=== PATIENT | male | born 1995 | race Caucasian/White ===

== ENCOUNTER 2017-10-06 23:01 | Emergency (ER) | payer SELFPAY ==
[~2017-10-06] VITALS: Ht 165.1 cm; Wt 66.0 kg
[2017-10-06 23:08] VITALS: BP 134/62; PULSE 73; RESP 16; TEMP 98.2; O2SAT 98
[2017-10-06] MEDS ORDERED: PENI500T PO (23:29)
[2017-10-06] MEDS ORDERED: PENICILLIN V POTASSIUM 500 MG TAB PO ONE (23:30)
[2017-10-06] MEDS ORDERED: LIDOCAINE 1%/EPINEPHrine 1:100,000 SOLN 20 ML VIAL INFIL ONE (23:30)
--- NOTE | 2017-10-06 23:30 | PD ---
HPI Chief Complaint: Oral / Dental Pain or Problem Time Seen by Provider: 23:16 Travel History International Travel<30 days: No Contact w/Intl Traveler<30days: No Traveled to known affect area: No History of Present Illness HPI 22-year-old male here for evaluation of left lower dental pain. The patient has had intermittent pain for the last month, worsening pain over the last 2-3 days. He states that the pain was so bad tonight that he was unable to sleep. Pain is severe, constant. No fevers. He is able to swallow and tolerate his secretions. He believes the pain is from his left lower wisdom tooth. He has been unable to get in with a dentist. [facility] Past Medical History Medical History: Denies Significant Hx Tetanus Vaccination: < 5 Years Influenza Vaccination: No Past Surgical History Surgical History: No Previous Surgery Social History Alcohol Use: No Tobacco Use: Yes (1-2 cig daily) Substance Use: No Allergies-Medications (Allergen,Severity, Reaction): Coded Allergies: No Known Drug Allergies (Verified Allergy, Unknown, 10/06/17) Review of Systems Except as stated in HPI: all other systems reviewed are Neg Physical Exam Narrative GENERAL: Well-developed, well-nourished, comfortable, no apparent distress. SKIN: Focused skin assessment warm/dry. HEAD: Atraumatic. Normocephalic. EYES: Pupils equal and round. No scleral icterus. No injection or drainage. ENT: No nasal bleeding or discharge. Mucous membranes pink and moist. Left lower/most posterior molar with obvious decay without fluctuance, without purulence, without induration. No masses. No trismus. No drooling or stridor. Normal pharynx. NECK: Trachea midline. No JVD. No submandibular swelling, induration, or erythema. CARDIOVASCULAR: Regular rate and rhythm. RESPIRATORY: No accessory muscle use. Clear to auscultation. Breath sounds equal bilaterally. MUSCULOSKELETAL: No obvious deformities. No clubbing. No cyanosis. No edema. NEUROLOGICAL: Awake and alert. No obvious cranial nerve deficits. Motor grossly within normal limits. Normal speech. PSYCHIATRIC: Appropriate mood and affect; insight and judgment normal. Data Data Last Documented VS Vital Signs Date Time Temp Pulse Resp B/P (MAP) Pulse Ox O2 Delivery O2 Flow Rate FiO2 10/06/17 23:08 98.2 73 16 134/62 (86) 98 Orders Orders Lidocai-Epi 1%-1:100,000 Inj (Xylocaine- (10/06/17 23:30) Penicillin V Potassium (Veetids) (10/06/17 23:30) MDM Medical Decision Making Medical Screen Exam Complete: Yes Emergency Medical Condition: Yes Differential Diagnosis Dental caries, dental infection Narrative Course This is a 22-year-old male with left lower/posterior molar dental pain. There is obvious decay to this posterior molar. Patient was provided a left inferior alveolar nerve block with significant improvement in pain. He will be started on Pen-Vee K and will be given information to outpatient dental clinics. He is stable for discharge home with outpatient follow-up. He was advised on when to return to the emergency department. He verbalizes understanding and agreement with plan. Procedures Procedure Narrative Left inferior alveolar nerve block: 1.5 cc of 1% lidocaine with epinephrine was injected in the area of the left inferior alveolar nerve. Patient experienced immediate relief of pain. Tolerated well. No complications. Diagnosis Primary Impression: Pain, dental Referrals: Dentist 3 days Additional Instructions: Follow-up with a dentist this week. Return to the emergency department for worsening symptoms or any other concerns. Scripts Penicillin V Potassium (Penicillin V Potassium) 500 Mg Tab 500 MG PO Q6H for Infection for 10 Days, #40 TAB 0 Refills Prov: Chadd Dimas MD 10/06/17 Disposition: 01 DISCHARGE HOME Condition: Stable Chadd Dimas MD October 06, 2017 23:29
[2017-10-06] MEDS ORDERED: IBUPROFEN 600 MG TAB PO ONE (23:45)
== END 2017-10-06 23:47 | disposition home or self-care (01) ==
LOC: NEPD 23:01
DX: K08.89 Other specified disorders of teeth and supporting structures (principal); F17.210 Nicotine dependence, cigarettes, uncomplicated
CPT/HCPCS: 64400